=== PATIENT | female | born 1965 | race Caucasian/White ===

== ENCOUNTER 2017-09-27 12:10 | Emergency (ER) | payer OTHER ==
[~2017-09-27] VITALS: Ht 172.7 cm; Wt 45.4 kg
[~2017-09-27 12:10] MED LIST: ALBUTEROL2.5 MG/31 INH; ALBUTEROL2.5 MG/31 PO; AMOXICILLIN875 MG PO; ATRIPLA TABLET1 EACH PO; AZITHROMYCIN 2250 MG PO; CEFTIN500 MG PO; CIPRO250 M1 PO; CIPROFLOXACIN500 M1 PO; DOLOPHINE HCL10 MG PO; DOXYCYCLINE 10100 MG PO; DUONEB 2.5-0.5 M3 ML INH; GUAIFENESIN ER600 MG PO; HYDROCODON-ACE1 EAC1 PO; KLOR-CON 1010 MEQ PO; LEVAQUIN 500 M500 M2 PO; LEVAQUIN 500 M500 MG PO; LORTAB 7.5/5001 TA1 PO; MEDROLDOSEPACK PO; METHADOSE10 MG/1 ML; MULTI VITAMIN1 EACH PO; NAPROSYN375 MG PO; NICOTINE TRANSDE7 MG TRANSDERM; NOHOMEMEDICATIONS; NORCO 5-325 TA1 EACH PO; OXYCODONE HCL 55 MG PO; PENICILLIN VK500 M1 PO; PERCOCET 10-321 EACH PO; PHENERGAN-CODE120 ML PO; PREDNISONE 10 M10 M1 PO; PREDNISONE 20 M20 M1 PO; PREDNISONE50 MG PO; PROAIR HFA8.5 GM IH; PROAIR HFA8.5 GM PO; PROMETHAZINE-C120 ML PO; PROMETHAZINE-D120 ML PO; TESSALON200 MG PO; VENTOLIN HFA 1818 GM INH; VENTOLIN HFA INH8 GM IH; VICODIN 5-5001 EACH PO; XANAX 0.5 MG0.5 M1
[2017-09-27] MEDS ORDERED: ODEFSEY TABLET1 EACH PO (12:24)
[2017-09-27] MEDS ORDERED: PROAIR HFA8.5 GM INH (13:03)
[2017-09-27] MEDS ORDERED: TESSALON PERLE100 MG PO (13:03)
[2017-09-27] MEDS ORDERED: PREDNISONE 20 M20 MG PO (13:03)
[2017-09-27] MEDS ORDERED: LEVAQUIN 500 M500 M2 PO (13:03)
[2017-09-27] MEDS ORDERED: DUONEB 2.5-0.5 M3 ML INH (13:03)
[2017-09-27] MEDS ORDERED: PROMETHAZINE V473 ML PO (13:03)
[2017-09-27 13:09] VITALS: BP 98/52
== END 2017-09-27 13:10 | disposition home or self-care (01) ==
LOC: M.ERS 12:10
DX: J18.9 Pneumonia, unspecified organism (principal); Z90.89 Acquired absence of other organs; Z88.6 Allergy status to analgesic agent; Z87.891 Personal history of nicotine dependence

== ENCOUNTER 2018-03-29 17:04 | Emergency (ER) | payer BC ==
[~2018-03-29] VITALS: Ht 170.2 cm; Wt 46.7 kg
[~2018-03-29 17:04] MED LIST changes: +ODEFSEY TABLET1 EACH PO; +PREDNISONE 20 M20 MG PO; +PROAIR HFA8.5 GM INH; +PROMETHAZINE V473 ML PO; +TESSALON PERLE100 MG PO
[2018-03-29] MEDS ORDERED: FLEXERIL PO (18:36)
[2018-03-29 18:44] VITALS: BP 108/78
== END 2018-03-29 18:45 | disposition home or self-care (01) ==
LOC: M.ERS 17:04
DX: S06.0X0A Concussion without loss of consciousness, initial encounter (principal); S16.1XXA Strain of muscle, fascia and tendon at neck level, initial encounter; Z87.01 Personal history of pneumonia (recurrent); Z86.19 Personal history of other infectious and parasitic diseases; Z88.6 Allergy status to analgesic agent; Z87.442 Personal history of urinary calculi; V49.49XA Driver injured in collision with other motor vehicles in traffic accident, initial encounter; Y93.89 Activity, other specified; Y92.89 Other specified places as the place of occurrence of the external cause; Y99.8 Other external cause status

== ENCOUNTER 2018-09-22 03:18 | Emergency (ER) | payer BC, OTHER ==
[~2018-09-22] VITALS: Ht 170.2 cm; Wt 43.1 kg
[~2018-09-22 03:18] MED LIST changes: +FLEXERIL PO
[2018-09-22] MEDS ORDERED: PENICILLIN VK500 MG PO (03:49)
[2018-09-22] MEDS ORDERED: HYDROCODONE-IB1 EACH PO (03:49)
[2018-09-22 04:05] VITALS: BP 139/86
== END 2018-09-22 04:05 | disposition home or self-care (01) ==
LOC: M.ERS 03:18
DX: J02.9 Acute pharyngitis, unspecified (principal); Z87.891 Personal history of nicotine dependence; Z88.6 Allergy status to analgesic agent; Z90.89 Acquired absence of other organs; Z21 Asymptomatic human immunodeficiency virus [HIV] infection status

== ENCOUNTER 2019-08-05 22:51 | Inpatient (IN) | payer OTHER ==
[~2019-08-05] VITALS: Ht 170.2 cm; Wt 46.3 kg
[~2019-08-05 22:51] MED LIST changes: +HYDROCODONE-IB1 EACH PO; -METHADOSE10 MG/1 ML; +METHADOSE10 MG/1 ML PO; +PENICILLIN VK500 MG PO; -XANAX 0.5 MG0.5 M1; +XANAX 0.5 MG0.5 M1 PO
[2019-08-05 22:59] VITALS: BP 119/72
[2019-08-05 23:25] LABS: INFLUENZA A ANTIGEN Negative (Negative)
[2019-08-06 00:58] LABS: HEMATOCRIT 35.7 % (37.0-47.0); HEMOGLOBIN 12.3 gm/dL (12.0-15.0); MCH 32.6 pg (26.0-34.0); MCHC 34.3 g/dL (28.0-37.0); MCV 94.9 fL (80.0-100.0); MPV 8.5 fl. (7.2-11.1); NUCLEATED RBCS 0 /100WBC; PLATELET COUNT* 179 thou/uL (150-400); RBC 3.76 mil/uL (4.20-5.00); RDW-CV 12.9 % (10.5-14.5); WBC 13.9 thou/uL (4.0-11.0)
[2019-08-06 01:10] LABS: CALCIUM 8.4 mg/dL (8.5-10.1); CREATININE 1.2 mg/dL (0.6-1.3); POTASSIUM 3.7 mmol/L (3.5-5.1)
[2019-08-06 01:15] LABS: ALBUMIN 3.2 g/dL (3.4-5.0); TOTAL BILIRUBIN 0.4 mg/dL (<0.1-1.0); TOTAL PROTEIN 7.1 g/dL (6.4-8.2)
[2019-08-06 06:19] LABS: ABSOLUTE LYMPHOCYTES 0.3 thou/uL (0.8-5.3); ABSOLUTE NEUTROPHILS 12.6 thou/uL (1.6-8.1); PLATELET ESTIMATE ADEQUATE
[2019-08-06 06:20] LABS: ANISOCYTOSIS 1+; POIKILOCYTOSIS 1+
--- NOTE | 2019-08-06 06:59 | NUR ---
THIS NURSE ASSUMED PT CARE AT THIS TIME AFTER RECEIVING REPORT FROM RYAN ZHENG.
[2019-08-06 08:53] VITALS: BP 104/66
--- NOTE | 2019-08-06 08:53 | NUR ---
REPORT GIVEN TO RYAN JERNIGAN WHO IS TO ASSUME PT CARE INPATIENT NURSE.
[2019-08-06 09:00] VITALS: BP 116/76
[2019-08-06 15:49] VITALS: BP 106/62
--- NOTE | 2019-08-06 17:04 | NUR ---
PT REMAINED ALERT AND ORIENTED. ISOLATION PRECAUTIONS IN PLACE. MEDS RECONCILLED. FALL RISK PRECAUTIONS IN PLACE. HOURLY ROUNDING COMPLETED. WILL CONTINUE TO MONITOR.
[2019-08-06 19:38] LABS: URINE BILIRUBIN NEGATIVE (Negative); URINE BLOOD NEGATIVE (Negative); URINE CLARITY CLEAR; URINE COLOR YELLOW; URINE GLUCOSE-RANDOM 3+ (Negative); URINE KETONES NEGATIVE (Negative); URINE LEUKOCYTES-REFLEX NEGATIVE (Negative); URINE NITRITE-REFLEX NEGATIVE (Negative); URINE PROTEIN NEGATIVE (Negative); URINE UROBILINOGEN 0.2 E.U./dl (0.2-1.0)
[2019-08-06 22:26] VITALS: BP 128/71
[2019-08-07 03:45] LABS: HEMATOCRIT 34.4 % (37.0-47.0); HEMOGLOBIN 11.9 gm/dL (12.0-15.0); MCH 32.9 pg (26.0-34.0); MCHC 34.5 g/dL (28.0-37.0); MCV 95.3 fL (80.0-100.0); MPV 8.3 fl. (7.2-11.1); RBC 3.61 mil/uL (4.20-5.00); RDW-CV 13.7 % (10.5-14.5); WBC 16.1 thou/uL (4.0-11.0)
[2019-08-07 04:16] LABS: CALCIUM 8.4 mg/dL (8.5-10.1)
[2019-08-07 04:33] LABS: POTASSIUM 3.5 mmol/L (3.5-5.1)
--- NOTE | 2019-08-07 04:57 | NUR ---
ASSUMED CARE OF PT 08/06/19 AT APPROX 1930, PT A&OX4, PT ON 3L NC, VSS, CONTACT AND DROPLET ISOLATION PRECAUTIONS MAINTAINED, ASSESSMENTS AND HOURLY ROUNDINGS COMPLETED, WILL CONTINUE TO MONITOR.
[2019-08-07 07:20] VITALS: BP 130/82
--- NOTE | 2019-08-07 17:12 | NUR ---
pt remained alert and oriented. pt resting in bed. up ad jai. pt denies any needs at this time. fall risk precautions in place. hourly rounding completed. will continue to monitor.
[2019-08-07 20:20] VITALS: BP 124/80
--- NOTE | 2019-08-08 05:04 | NUR ---
PATIENT SLEPT WELL FOR ENTIRE SHIFT. SHE DID NOT REPORT ANY PAIN OR NAUSEA. UP AD SILAS. STILL ON DROPLET/CONTRACT PRECAUTIONS. COUGH IMPROVED. WILL CONTINUE TO FOLLOW PLAN OF CARE.
[2019-08-08 06:46] LABS: ABSOLUTE EOSINOPHILS 0.1 thou/uL (0.0-0.7); ABSOLUTE LYMPHOCYTES 2.7 thou/uL (0.8-5.3); ABSOLUTE NEUTROPHILS 11.8 thou/uL (1.6-8.1); BASOPHILS 0.2 %; EOSINOPHILS 0.9 %; HEMATOCRIT 36.4 % (37.0-47.0); HEMOGLOBIN 12.2 gm/dL (12.0-15.0); MCH 32.3 pg (26.0-34.0); MCHC 33.7 g/dL (28.0-37.0); MCV 95.9 fL (80.0-100.0); MONOCYTES 6.1 %; MPV 7.5 fl. (7.2-11.1); NUCLEATED RBCS 0 /100WBC; PLATELET COUNT* 233 thou/uL (150-400); POLYS 75.8 %; RBC 3.79 mil/uL (4.20-5.00); RDW-CV 13.6 % (10.5-14.5); WBC 15.6 thou/uL (4.0-11.0)
[2019-08-08 07:15] VITALS: BP 109/69
--- NOTE | 2019-08-08 13:58 | NUR ---
Nutrition: Pt admitted with PNA. H/o illicit drug use, methadone dependent, HIV, Hep C. Physician indicated mild PCM - defer. REgular diet ordered. Pt has weighed ~100# for several years - no recent wt changes. Albumin 3.2. Pt has had Ensure before - RD will order. No other nutrition interventions at this time. Mild risk.
--- NOTE | 2019-08-08 16:13 | NUR ---
CM ASSESSMENT: MET WITH PT IN ROOM. PT HAS FLU AND PNEUMONIA. PT LIVES AT HOME WITH HER AND TEENAGE CHILDREN. 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 NO CM NEEDS AT THIS TIME
[2019-08-08 17:22] VITALS: BP 125/86
--- NOTE | 2019-08-08 17:33 | NUR ---
PT REMAINED ALERT AND ORIENTED. PT REQUESTED MEDS TO HELP HAVE A BM, MEDS GIVEN ORDERED. FALL RISK PRECAUTIONS IN PLACE. ISOLATION PRECAUTIONS IN PLACE. HOURLY ROUNDING COMPLETED. WILL CONTINUE TO MONITOR.
[2019-08-08 21:22] VITALS: BP 125/83
--- NOTE | 2019-08-09 05:44 | NUR ---
PATIENT REPORTED HEADACHE AT 0330 GOT ORDER FOR BUTALBITAL. SHE WAS ABLE TO SLEEP MOST OF NIGHT. COUGH HAS IMPROVED. SHE IS STILL UP AD SILAS. WILL BE HERE TONIGHT FOR ABX AND CONTINUE CARE.
[2019-08-09 07:35] VITALS: BP 150/71
[2019-08-09 16:00] VITALS: BP 122/75
--- NOTE | 2019-08-09 17:32 | NUR ---
PT REMAINED ALERT AND ORIENTED. PT RESTING IN BED. PT DENIES ANY NEEDS AT THIS TIME. FALL RISK PRECAUTIONS IN PLACE. HOURLY ROUNDING COMPLETED. WILL CONTINUE TO MONITOR.
[2019-08-09 21:08] VITALS: BP 129/80
--- NOTE | 2019-08-10 06:03 | NUR ---
NO REPORTS OF WORSENING OF CONDITION, PAIN, NAUSEA OR COUGH. NO REPORT OF H/A THIS SHIFT. SHE TOOK SHOWER AND SLEPT THROUGH THE NIGHT. PLAN IS TO POSSIBLY D/C TODAY.
[2019-08-10 07:53] VITALS: BP 115/77
--- NOTE | 2019-08-10 08:55 | NUR ---
[facility] SCREENED PT, NOT ELIGIBLE FOR MEDICAID
--- NOTE | 2019-08-10 11:33 | CON ---
[address] [address] CONSULTATION Name: DANIELLA HALL Room: [address] IN M.R.#: [id number] Admission: 08/06/19 Attend Phys: Vince Sierra MD Discharge: Date of : 67 Report #: [id number] THIS REPORT FOR: //name// CC: Vince Marsh DATE OF SERVICE: 08/09/2019 ATTENDING PHYSICIAN: Dr. Sierra. REASON FOR EVALUATION: Influenza B with complicating secondary bacterial pneumonitis in the setting of HIV. HISTORY OF PRESENT ILLNESS: Chart reviewed, patient examined. This 53-year-old known to myself, was previously hospitalized with pneumonia, although it has been several years, dating back to 2012, who has been ill for the last couple of weeks, fevers, myalgias, dyspnea with cough, it was progressive, was diagnosed with influenza B. Subsequently, developed more cough and some rib pain. Chest x-ray showed a right basilar opacity. Tentatively diagnosed with pneumonitis. She was started on combination therapy with oseltamivir as well as ceftriaxone and azithromycin. At this point, she has been weaned off oxygen support. She is reasonably comfortable. Denies significant gastrointestinal-related complaints. ALLERGIES: ACETAMINOPHEN. CURRENT MEDICATIONS: Include azithromycin, methadone, alprazolam, ceftriaxone, guaifenesin, budesonide. PAST MEDICAL HISTORY: As noted above, history of HIV, apparently most recent CD4 was in the 600-700 and viral load was undetectable. She estimates about 4 months ago, she has been taking highly active antiretroviral therapy, Odefsey; as well as history of hepatitis C, chronic back and feet pain. 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 No ethanol. FAMILY HISTORY: Noncontributory. REVIEW OF SYSTEMS: Otherwise, unremarkable 10-point review of system with the exception of the above. PHYSICAL EXAMINATION: GENERAL: She is alert, cooperative. She appears chronically ill, undernourished, mild distress. VITAL SIGNS: Temperature 98.3, pulse 95, respirations 16, [place] [id number] CONSULTATION Name: DANIELLA HALL LISSETTE Room: [address]#: [id number] Admission: 08/06/19 Attend Phys: Vince Sierra MD Discharge: Date of : 67 Report #: [id number] 150/74. SKIN: Warm, dry, no rashes. HEENT: Normocephalic. Extraocular muscles intact. NECK: Supple. LUNGS: Few scattered basilar crackles. HEART: Regular. Borderline tachycardia. I do not appreciate any murmur. ABDOMEN: Soft, nontender, nondistended. EXTREMITIES: No cyanosis. GENITOURINARY AND RECTAL: Deferred. LABORATORY DATA: C4 186, although I think that is artificially low, absolute lymphocyte count jumped from 300-900 and now 2700. That study was done on the 2nd value. Sputum culture showed upper respiratory tract werner. Chest x-ray with basilar infiltrate on the right. CBC: White count of 15.6, H and H 12.2 and 36.4, platelets of 233. Blood cultures sterile thus far. Electrolytes: Sodium 140, potassium 3.5, chloride 108, bicarbonate 24, anion gap of 8, BUN and creatinine 14 and 1.0. Urinalysis unremarkable. Lactic acid of 1.7. Influenza antigen negative. ASSESSMENT AND PLAN: Influenza, complicated by secondary bacterial pneumonitis. Will continue combination therapy as prescribed. I think she would be able to transition to oral antibiotics fairly quickly, in the next 24-48 hours. She was quite concerned about having a lower than expected CD4. I think this is result of the underlying issue and should rebound back to more normal. She notes she has been compliant with the medicine. I suspect a viral load again will become undetectable if indeed there is evidence of virions associated with this recent illness. We will follow. <ELECTRONICALLY SIGNED> By: Leonel Phillips MD 08/10/19 [id number] Phillips MD /nt
[2019-08-10 16:00] VITALS: BP 118/73
--- NOTE | 2019-08-10 16:08 | NUR ---
ASSUMED CARE OF PT AROUND 0730 THIS AM.REFER TO ASSESSMENT. ANTICIPATE DC HOME TOMORROW. PT STATES SHE FEELS 'MUCH BETTER'. NO OTHER CONCERNS AT THIS TIME. CLWR. WCTM.
[2019-08-10 20:15] VITALS: BP 120/75
[2019-08-10] MEDS ORDERED: SENOKOT-S TABL1 EACH PO (22:10)
[2019-08-10] MEDS ORDERED: MIRALAX119 GM PO (22:10)
--- NOTE | 2019-08-11 04:19 | NUR ---
ASSUMED CARE FROM DAY SHIFT, PT DENIES SOA, LOOSE PROD COUGH NOTED. LUNG SOUNDS CLEAR THROUGHOUT. PT RESTED WELL THROUGHOUT HOURLY ROUUNDS. WILL CONINTUE WITH CURRENT PLAN OF CARE AND WILL REPORT CHANGES.
--- NOTE | 2019-08-11 05:38 | NUR ---
ASSUMED CARE OF PT APPROX 0515, PT AWAKE AND WATCHING TV, NO NEEDS IDENTIFIED AT THIS TIME. PT HAS BELONGINGS TOGETHER AND STATES SHE IS READY TO GO HOME. WILL CONTINUE TO MONITOR.
[2019-08-11 07:22] VITALS: BP 118/82
[2019-08-11] MEDS ORDERED: CEFDINIR300 MG PO (10:02)
[2019-08-11] MEDS ORDERED: PROAIR HFA8.5 GM INH (10:53)
[2019-08-11] MEDS ORDERED: MUCINEX600 MG PO (10:53)
[2019-08-11 10:57] VITALS: BP 118/82
[2019-08-11 12:35] VITALS: BP 118/82
== END 2019-08-11 12:05 | disposition home or self-care (01) | DRG 194 ==
LOC: M.ERS 22:51 → M.TBA-ER 08-06 00:58 → M.ORTHSURG 08-06 00:58
PROVIDERS: Emergency Medicine; Family Medicine; ADMIT Internal Medicine
DX: J10.08 Influenza due to other identified influenza virus with other specified pneumonia (principal); F11.20 Opioid dependence, uncomplicated; E44.1 Mild protein-calorie malnutrition; Z68.1 Body mass index [BMI] 19.9 or less, adult; J15.9 Unspecified bacterial pneumonia; Z21 Asymptomatic human immunodeficiency virus [HIV] infection status; B19.20 Unspecified viral hepatitis C without hepatic coma; R09.02 Hypoxemia; M54.9 Dorsalgia, unspecified; G89.29 Other chronic pain; F17.210 Nicotine dependence, cigarettes, uncomplicated; F41.9 Anxiety disorder, unspecified; F32.9 Major depressive disorder, single episode, unspecified; Z98.891 History of uterine scar from previous surgery; Z87.01 Personal history of pneumonia (recurrent); Z88.6 Allergy status to analgesic agent; Z28.21 Immunization not carried out because of patient refusal; Z79.899 Other long term (current) drug therapy

== ENCOUNTER 2020-08-16 18:31 | Emergency (ER) | payer OTHER ==
[~2020-08-16] VITALS: Ht 170.2 cm; Wt 47.6 kg
[~2020-08-16 18:31] MED LIST changes: +CEFDINIR300 MG PO; +MIRALAX119 GM PO; +MUCINEX600 MG PO; +SENOKOT-S TABL1 EACH PO
[2020-08-16 20:09] VITALS: BP 125/68
== END 2020-08-16 20:09 | disposition home or self-care (01) ==
LOC: M.ERS 18:31
DX: M71.22 Synovial cyst of popliteal space [Baker], left knee (principal); G89.29 Other chronic pain; Z87.891 Personal history of nicotine dependence; Z88.6 Allergy status to analgesic agent; Z90.89 Acquired absence of other organs; Z86.19 Personal history of other infectious and parasitic diseases; Z87.01 Personal history of pneumonia (recurrent); Z98.890 Other specified postprocedural states

== ENCOUNTER 2020-10-21 20:11 | Emergency (ER) | payer OTHER ==
[~2020-10-21] VITALS: Ht 170.2 cm; Wt 47.6 kg
[2020-10-21] MEDS ORDERED: [UNRECOGNIZED DRUG - OTHER] (20:35)
[2020-10-21 21:22] LABS: ABSOLUTE EOSINOPHILS 0.3 thou/uL (0.0-0.7); ABSOLUTE LYMPHOCYTES 1.5 thou/uL (0.8-5.3); ABSOLUTE MONOCYTES 0.5 thou/uL (0.0-1.2); ABSOLUTE NEUTROPHILS 3.2 thou/uL (1.6-8.1); BASOPHILS 0.6 %; EOSINOPHILS 4.7 %; HEMATOCRIT 37.2 % (37.0-47.0); HEMOGLOBIN 12.6 gm/dL (12.0-15.0); LYMPHOCYTES 27.7 %; MCH 31.4 pg (26.0-34.0); MCHC 33.7 g/dL (28.0-37.0); MCV 93.1 fL (80.0-100.0); MONOCYTES 8.4 %; MPV 7.3 fl. (7.2-11.1); NUCLEATED RBCS 0 /100WBC; PLATELET COUNT* 186 thou/uL (150-400); POLYS 58.6 %; RDW-CV 13.4 % (10.5-14.5); WBC 5.4 thou/uL (4.0-11.0)
[2020-10-21 21:35] LABS: CALCIUM 8.2 mg/dL (8.5-10.1); CREATININE 0.9 mg/dL (0.6-1.3); POTASSIUM 3.9 mmol/L (3.5-5.1)
[2020-10-21 21:40] LABS: ALBUMIN 3.4 g/dL (3.4-5.0); MAGNESIUM 1.9 mg/dL (1.8-2.4); TOTAL BILIRUBIN 0.4 mg/dL (<0.1-1.0); TOTAL PROTEIN 7.3 g/dL (6.4-8.2)
[2020-10-21] MEDS ORDERED: FLEXERIL PO (22:12)
[2020-10-21] MEDS ORDERED: IBUPROFEN 600600 M1 PO (22:12)
[2020-10-21 22:59] VITALS: BP 115/70
== END 2020-10-21 23:02 | disposition home or self-care (01) ==
LOC: M.ERS 20:11
PROVIDERS: Nurse Practitioner Family
DX: M79.661 Pain in right lower leg (principal); G89.29 Other chronic pain; Z87.891 Personal history of nicotine dependence; Z88.6 Allergy status to analgesic agent; Z90.89 Acquired absence of other organs; Z86.19 Personal history of other infectious and parasitic diseases; Z87.01 Personal history of pneumonia (recurrent); Z98.890 Other specified postprocedural states; Z98.51 Tubal ligation status

== ENCOUNTER 2020-11-28 00:05 | Emergency (ER) | payer OTHER ==
[~2020-11-28] VITALS: Ht 170.2 cm; Wt 47.6 kg
[~2020-11-28 00:05] MED LIST changes: +IBUPROFEN 600600 M1 PO; +[UNRECOGNIZED DRUG - OTHER]
[2020-11-28 01:07] VITALS: BP 152/98
== END 2020-11-28 01:08 | disposition home or self-care (01) ==
LOC: M.ERS 00:05
DX: M79.674 Pain in right toe(s) (principal); G89.29 Other chronic pain; L98.9 Disorder of the skin and subcutaneous tissue, unspecified; Z90.89 Acquired absence of other organs; Z98.890 Other specified postprocedural states; Z98.51 Tubal ligation status; Z79.899 Other long term (current) drug therapy; Z88.6 Allergy status to analgesic agent; Z87.891 Personal history of nicotine dependence

== ENCOUNTER 2021-01-02 00:25 | Emergency (ER) | payer OTHER | END 2021-01-02 01:53 | disposition home or self-care (01) | LOC: M.ERS 00:25 | DX: S50.862A Insect bite (nonvenomous) of left forearm, initial encounter (principal); M70.22 Olecranon bursitis, left elbow; G89.29 Other chronic pain; Z87.891 Personal history of nicotine dependence; Z90.89 Acquired absence of other organs; W57.XXXA Bitten or stung by nonvenomous insect and other nonvenomous arthropods, initial encounter; Y92.89 Other specified places as the place of occurrence of the external cause; Y93.89 Activity, other specified; Y99.9 Unspecified external cause status ==

== ENCOUNTER 2021-06-07 17:57 | Emergency (ER) | payer OTHER ==
[~2021-06-07] VITALS: Ht 170.2 cm; Wt 47.6 kg
[2021-06-07 18:43] LABS: ABSOLUTE EOSINOPHILS 0.5 thou/uL (0.0-0.7); ABSOLUTE LYMPHOCYTES 1.6 thou/uL (0.8-5.3); ABSOLUTE MONOCYTES 0.5 thou/uL (0.0-1.2); ABSOLUTE NEUTROPHILS 3.3 thou/uL (1.6-8.1); BASOPHILS 0.6 %; EOSINOPHILS 8.4 %; HEMATOCRIT 38.8 % (37.0-47.0); LYMPHOCYTES 26.9 %; MCH 30.6 pg (26.0-34.0); MCHC 33.5 g/dL (28.0-37.0); MCV 91.2 fL (80.0-100.0); MONOCYTES 7.9 %; MPV 7.8 fl. (7.2-11.1); NUCLEATED RBCS 0 /100WBC; PLATELET COUNT* 197 thou/uL (150-400); POLYS 56.2 %; RBC 4.26 mil/uL (4.20-5.00); RDW-CV 13.6 % (10.5-14.5); WBC 5.8 thou/uL (4.0-11.0)
[2021-06-07 18:49] LABS: CALCIUM 8.5 mg/dL (8.5-10.1); CREATININE 0.8 mg/dL (0.6-1.3); POTASSIUM 3.6 mmol/L (3.5-5.1)
[2021-06-07 19:02] LABS: ALBUMIN 3.2 g/dL (3.4-5.0); TOTAL BILIRUBIN 0.3 mg/dL (<0.1-1.0)
[2021-06-07 19:30] VITALS: BP 133/87
== END 2021-06-07 19:30 | disposition home or self-care (01) ==
LOC: M.ERS 17:57
PROVIDERS: Physician Assistant
DX: J06.9 Acute upper respiratory infection, unspecified (principal); Z20.822 Contact with and (suspected) exposure to COVID-19; J44.9 Chronic obstructive pulmonary disease, unspecified; Z87.891 Personal history of nicotine dependence; Z98.890 Other specified postprocedural states; Z98.51 Tubal ligation status

== ENCOUNTER 2021-06-27 23:32 | Inpatient (IN) | payer OTHER ==
[~2021-06-27] VITALS: Ht 170.2 cm; Wt 47.6 kg
[2021-06-27 23:45] VITALS: BP 90/65
[2021-06-27] MEDS ORDERED: XANAX2 MG PO (23:47)
[2021-06-27] MEDS ORDERED: METHADONE10 MG/1 M2 PO (23:48)
[2021-06-28 00:31] LABS: HEMATOCRIT 44.8 % (37.0-47.0); HEMOGLOBIN 14.8 gm/dL (12.0-15.0); MCH 30.6 pg (26.0-34.0); MCHC 33.1 g/dL (28.0-37.0); MCV 92.5 fL (80.0-100.0); MPV 8.1 fl. (7.2-11.1); NUCLEATED RBCS 0 /100WBC; PLATELET COUNT* 163 thou/uL (150-400); RBC 4.85 mil/uL (4.20-5.00); RDW-CV 14.3 % (10.5-14.5); WBC 18.4 thou/uL (4.0-11.0)
[2021-06-28 00:41] LABS: CALCIUM 8.6 mg/dL (8.5-10.1); CREATININE 1.5 mg/dL (0.6-1.3); POTASSIUM 3.2 mmol/L (3.5-5.1)
[2021-06-28 00:45] LABS: ALBUMIN 3.1 g/dL (3.4-5.0); TOTAL BILIRUBIN 0.6 mg/dL (<0.1-1.0); TOTAL PROTEIN 7.3 g/dL (6.4-8.2)
[2021-06-28 02:08] LABS: ABSOLUTE LYMPHOCYTES 1.1 thou/uL (0.8-5.3); ABSOLUTE MONOCYTES 1.1 thou/uL (0.0-1.2); ABSOLUTE NEUTROPHILS 16.2 thou/uL (1.6-8.1)
[2021-06-28 02:09] LABS: PLATELET ESTIMATE ADEQUATE
[2021-06-28 04:42] VITALS: BP 100/64
[2021-06-28 09:00] VITALS: BP 109/74
--- NOTE | 2021-06-28 09:04 | NUR ---
PT STATES SHE HAS TO USE THE BATHROOM, BSC PLACED IN PATIENT'S ROOM. PT STATES IM JUST GOING TO LEAVE IF I HAVE TO THAT, THAT'S HUMILATING, AND IM CALLING [facility] TO SEE IF THEY HAVE ANY BEDS. I STATED TO PT SINCE SHE IS COVID POSITIVE AND DUE TO PRECAUTIONS SHE CAN NOT USE [facility] BATHROOM IN HALLWAY. PT STATES THIS IS STUPID AND IM GOING TO LEAVE. I STATED TO PT THAT IS YOUR CHOICE BUT IM GOING TO LEAVE THE BEDSIDE COMMODE RIGHT HERE IN CASE YOU CHANGE YOUR MIND, LET ME KNOW IF THERE IS ANYTHING I CAN HELP YOU WITH. I LEFT THE ROOM. CONTINUE TO MONITOR PT. CHARGE NURSE NOTIFIED
--- NOTE | 2021-06-28 10:58 | NUR ---
PT IS REQUESTING METHADONE THAT SHE TAKES AT HOME. YOUCALBLAYNE PAGE SENT TO DR CHAPA.
--- NOTE | 2021-06-28 12:06 | NUR ---
PT REQUESTING THAT SHE LEAVES AMA, DISCUSSED AMA FORM WITH HER. RISKS INCLUDED INFECTION, , WORSENING OF SYMPTOMS AND PT VERBALIZES UNDERSTANDING.
[2021-06-28 12:09] VITALS: BP 100/63
== END 2021-06-28 15:25 | disposition left against medical advice (07) | DRG 179 ==
LOC: M.ERS 23:32 → M.TBA-ER 06-28 00:58
PROVIDERS: Emergency Medicine; ADMIT Internal Medicine; ATTEND Internal Medicine
DX: U07.1 COVID-19 (principal); Z90.49 Acquired absence of other specified parts of digestive tract; Z79.899 Other long term (current) drug therapy; Z53.29 Procedure and treatment not carried out because of patient's decision for other reasons